=== PATIENT | male | born 1985 | race African-American/Black ===

== ENCOUNTER 2017-09-09 09:35 | Emergency (ER) | payer BC ==
[~2017-09-09] VITALS: Ht 182.9 cm; Wt 97.5 kg
[~2017-09-09 09:35] MED LIST: ACETAMINOPHEN-1 EAC1; ACETAMINOPHEN-1 EAC1 PO; BACTRIM DS TAB1 EACH PO; FLONASE 0.05%50 MCG NS; IBUPROFEN 600600 M1 PO; IBUPROFEN 800800 M1 PO; MULTIVITAMINS; PROMETHAZINE D480 ML PO; PROVENTIL HFA6.7 G1 INH; TESSALON PERLE100 MG PO; TESSALON200 MG PO; ZPAK PO
[2017-09-09] MEDS ORDERED: NORCO 5-325 TA1 EACH PO ×2 (10:40→10:41)
[2017-09-09 11:22] VITALS: BP 124/67
== END 2017-09-09 11:23 | disposition home or self-care (01) ==
LOC: M.ERS 09:35
DX: S86.812A Strain of other muscle(s) and tendon(s) at lower leg level, left leg, initial encounter (principal); Z88.0 Allergy status to penicillin; X50.1XXA Overexertion from prolonged static or awkward postures, initial encounter; Y93.89 Activity, other specified; Y92.89 Other specified places as the place of occurrence of the external cause; Y99.8 Other external cause status

== ENCOUNTER 2019-07-08 15:12 | Emergency (ER) | payer BC ==
[~2019-07-08] VITALS: Ht 182.9 cm; Wt 104.3 kg
[~2019-07-08 15:12] MED LIST changes: +NORCO 5-325 TA1 EACH PO
[2019-07-08 15:55] VITALS: BP 135/70
== END 2019-07-08 15:55 | disposition home or self-care (01) ==
LOC: M.ERS 15:12
DX: Z02.89 Encounter for other administrative examinations (principal); Z88.0 Allergy status to penicillin